=== PATIENT | male | born 1955 | race Asian ===

== ENCOUNTER 2016-06-08 17:18 | Emergency (ER) | payer OTHER ==
[~2016-06-08] VITALS: Ht 165.1 cm; Wt 1.8 kg
[2016-06-08] MEDS ORDERED: Norco 7.5mg/325mg tab ORAL ONE (17:45)
[2016-06-08] MEDS ORDERED: IBUPROFEN600 MG ORAL (19:30)
[2016-06-08] MEDS ORDERED: ROBAXIN-750750 MG PO (19:30)
[2016-06-08] MEDS ORDERED: NORCO 5-325 TA1 EAC1 ORAL (19:30)
[2016-06-08 19:44] VITALS: BP 134/79
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
== END 2016-06-08 19:44 | disposition home or self-care (01) ==
LOC: EDBD 17:18 → EMR 18:54
DX: S00.03XA Contusion of scalp, initial encounter (principal); T14.8 Other injury of unspecified body region; M54.2 Cervicalgia; M54.5 Low back pain; M25.552 Pain in left hip; M48.56XA Collapsed vertebra, not elsewhere classified, lumbar region, initial encounter for fracture; V03.00XA Pedestrian on foot injured in collision with car, pick-up truck or van in nontraffic accident, initial encounter; Y92.481 Parking lot as the place of occurrence of the external cause; Y99.8 Other external cause status
CPT/HCPCS: 70450; 72125; 72131; 72192; 99284